=== PATIENT | male | born 1965 | race Caucasian/White ===

== ENCOUNTER 2018-11-26 09:46 | Observation (INO) | payer BC ==
[2018-11-26 09:55] VITALS: BMI 31.5
--- NOTE | 2018-11-26 11:43 | PDOC ---
Documentation entered by Avel Alcantar SCRIBE, acting as scribe for Amber Long MD. Amber Logn MD: This documentation has been prepared by the Ortiz loaiza Nirvannie, SCRIBE, under my direction and personally reviewed by me in its entirety. I confirm that the documentation accurately reflects all work, treatment, procedures, and medical decision making performed by me. History of Present Illness - General Chief Complaint: Chest Pain Stated Complaint: CHEST PAIN, COUGH SENT BY PMD Time Seen by Provider: 11/26/18 11:08 History Source: Patient Exam Limitations: No Limitations - History of Present Illness Initial Comments: 11/26/18 11:39 The patient is a 53 year old male, with no significant past medical history, who presents to the emergency department s/p episode of near syncope yesterday at 3pm and EKG changes. As per patient, yesterday he experienced an episode of lightheadedness and felt like he was going to pass out prompting him to go to his PCP Dr. Nguyễn today at which time he was found to have new EKG changes. He denies any recent fevers, chills, headache or dizziness. He denies any recent nausea, vomit, diarrhea or constipation. He denies any recent chest pain or shortness of breath. He denies any recent dysuria, frequency, urgency or hematuria. Allergies: NKDA Familial Hx: Maternal mitral valve replacement @ 76YO. Primary Care Physician: Dr. Nguyễn Past History - Past Medical History Allergies/Adverse Reactions: Allergies Allergy/AdvReac Type Severity Reaction Status Date / Time No Known Allergies Allergy Verified 11/26/18 09:55 COPD: No Hypercholesterolemia: Yes - Suicide/Smoking/Psychosocial Hx Smoking History: Current every day smoker Number of Cigarettes Smoked Daily: 20 Information on smoking cessation initiated: No Hx Alcohol Use: No Drug/Substance Use Hx: No Review of Systems - Review of Systems Able to Perform ROS?: Yes Comments:: 11/26/18 11:41 GENERAL/CONSTITUTIONAL: No fever or chills. No weakness. HEAD, EYES, EARS, NOSE AND THROAT: No change in vision. No ear pain or discharge. No sore throat. CARDIOVASCULAR: +Near syncope. +Lightheaded. No chest pain or shortness of breath. RESPIRATORY: No cough, wheezing, or hemoptysis. GASTROINTESTINAL: No nausea, vomiting, diarrhea or constipation. GENITOURINARY: No dysuria, frequency, or change in urination. MUSCULOSKELETAL: No joint or muscle swelling or pain. No neck or back pain. SKIN: No rash. NEUROLOGIC: No headache, vertigo, or change in strength/sensation. ENDOCRINE: No increased thirst. No abnormal weight change. HEMATOLOGIC/LYMPHATIC: No anemia, easy bleeding, or history of blood clots. ALLERGIC/IMMUNOLOGIC: No hives or skin allergy. All Other Systems: Reviewed and Negative *Physical Exam - Vital Signs Last Vital Signs Temp Pulse Resp BP Pulse Ox 98.3 F 66 18 146/91 99 11/26/18 09:53 11/26/18 09:53 11/26/18 09:53 11/26/18 09:53 11/26/18 09:53 - Physical Exam Comments: 11/26/18 11:10 GENERAL: Awake, alert, and fully oriented, in no acute distress. Obese HEAD: No signs of trauma EYES: PERRLA, EOMI, sclera anicteric, conjunctiva clear ENT: Auricles normal inspection, hearing grossly normal, nares patent, oropharynx clear without exudates. Moist mucosa NECK: Normal ROM, supple, no lymphadenopathy, JVD, or masses LUNGS: Breath sounds equal, clear to auscultation bilaterally. No wheezes, and no crackles HEART: Regular rate and rhythm, normal S1 and S2, no murmurs, rubs or gallops ABDOMEN: Soft, nontender, normoactive bowel sounds. No guarding, no rebound. No masses EXTREMITIES: Normal range of motion, no edema. No clubbing or cyanosis. No cords, erythema, or tenderness NEUROLOGICAL: Cranial nerves II through XII grossly intact. Normal speech, normal gait. Motor and sensation intact SKIN: Warm, Dry, normal turgor, no rashes or lesions noted Heart Score/ECG Review - History History: Moderately suspicious - Electrocardiogram EKG: Normal - Age Age: 45-65 - Risk Factors Risk Factors Heart Score: Yes Hx Obesity Based on the list above the patient has:: 1-2 risk factors - Troponin Troponin: </= normal limit - Score Heart Score - Total: 3 - ECG Impressions Comment:: EKG read 09:54- NSR 66 bpm, no acute ST/T changes EKG from outpatient clinic for comparison shows ST elevations, concave up, in inferior leads. No reciprocal changes. ED Treatment Course - LABORATORY CBC & Chemistry Diagram: 11/26/18 12:00 11/26/18 12:00 - RADIOLOGY Radiology Studies Ordered: Category Date Time Status CHEST X-RAY PORTABLE* [RAD] Stat Radiology 11/26/18 11:10 Ordered Medical Decision Making - Medical Decision Making 11/26/18 11:24 Pt with near syncopal event yesterday, found to have abnormal EKG today, sent for evaluation. EKG in ED is normal. Awaiting labs. Will plan for observation stay. 11/26/18 13:30 Case d/w Dr. Rae, will place on obs. *DC/Admit/Observation/Transfer Diagnosis at time of Disposition: Near syncope - Discharge Dispostion Condition at time of disposition: Stable Decision to Admit order: Yes - Referrals Referrals: ON STAFF,NOT [Primary Care Provider] - - Patient Instructions - Post Discharge Activity
[2018-11-26 12:21] LABS: BASO % 0.4 % (0-2.0); EOS % 1.6 % (0-4.5); HEMATOCRIT 42.4 % (35.4-49); HEMOGLOBIN 14.4 GM/dL (11.7-16.9); LYMPH % 27.1 % (8-40); MCH 31.4 pg (25.7-33.7); MEAN CELL VOLUME 92.2 fl (80-96); MEAN PLT VOLUME 8.9 fl (7.5-11.1); MONO % 7.3 % (3.8-10.2); NEUT % 63.6 % (42.8-82.8); PLATELET COUNT 195 K/MM3 (134-434); RDW 14.2 % (11.9-15.9); WHITE BLOOD COUNT 4.8 K/mm3 (4.0-10.0)
[2018-11-26 12:24] LABS: INR 1.08 (0.83-1.09); PROTHROMBIN TIME (PATIENT) 12.8 SEC (9.7-13.0)
[2018-11-26 12:48] LABS: ALBUMIN 3.8 g/dl (3.4-5.0); ALK PHOS 83 U/L (45-117); ANION GAP 4 MMOL/L (8-16); BILIRUBIN,TOTAL 0.6 mg/dL (0.2-1); BLOOD UREA NITROGEN 13.6 mg/dL (7-18); CALCIUM 8.5 mg/dL (8.5-10.1); CHLORIDE 105 mmol/L (98-107); CO2 30 mmol/L (21-32); GLUCOSE,RANDOM 91 mg/dL (74-106); POTASSIUM 4.7 mmol/L (3.5-5.1); SGOT/AST 15 U/L (15-37); SGPT/ALT 25 U/L (13-61); SODIUM 139 mmol/L (136-145); TOT PROT 7.1 g/dl (6.4-8.2)
--- NOTE | 2018-11-26 17:16 | HP ---
Admitting History and Physical - Primary Care Physician PCP: Tana Rae - Admission History of Present Illness: -53 year old male, with no significant past medical history, who presents to the emergency department s/p episode of near syncope yesterday at 3pm and EKG changes. As per patient, yesterday he experienced an episode of lightheadedness and felt like he was going to pass out prompting him to go to his PCP Dr. Nguyễn today at which time he was found to have new EKG changes. He denies any recent fevers, chills, headache or dizziness. He denies any recent nausea, vomit, diarrhea or constipation. He denies any recent chest pain or shortness of breath. He denies any recent dysuria, frequency, urgency or hematuria. - Smoking History Smoking history: Current every day smoker Aproximately how many cigarettes per day: 20 - Alcohol/Substance Use Hx Alcohol Use: No Home Medications - Allergies Allergies/Adverse Reactions: Allergies Allergy/AdvReac Type Severity Reaction Status Date / Time No Known Allergies Allergy Verified 11/26/18 09:55 - Home Medications Home Medications: Ambulatory Orders NK [No Known Home Medication] 11/26/18 Physical Examination Vital Signs: Vital Signs Temperature 98.3 F 11/26/18 09:53 Pulse Rate 60 11/26/18 14:31 Respiratory Rate 18 11/26/18 14:31 Blood Pressure 110/65 11/26/18 14:31 O2 Sat by Pulse Oximetry (%) 100 11/26/18 14:31 Constitutional: Yes: No Distress HENT: Yes: Atraumatic Neck: Yes: Supple Cardiovascular: Yes: Regular Rate and Rhythm Respiratory: Yes: CTA Bilaterally Gastrointestinal: Yes: Normal Bowel Sounds Extremities: Yes: WNL Edema: No Neurological: Yes: Alert, Oriented Labs: CBC, BMP 11/26/18 12:00 11/26/18 12:00 Imaging - Results X-ray: Report Reviewed Problem List - Problems (1) Near syncope Code(s): R55 - SYNCOPE AND COLLAPSE Assessment/Plan Laboratory Tests 11/26/18 11/26/18 11/26/18 12:00 12:00 12:00 WBC 4.8 RBC 4.60 Hgb 14.4 Hct 42.4 MCV 92.2 MCH 31.4 MCHC 34.0 RDW 14.2 Plt Count 195 MPV 8.9 Absolute Neuts (auto) 3.0 Neutrophils % 63.6 Lymphocytes % 27.1 Monocytes % 7.3 Eosinophils % 1.6 Basophils % 0.4 Nucleated RBC % 0 PT with INR 12.80 INR 1.08 Sodium 139 Potassium 4.7 Chloride 105 Carbon Dioxide 30 Anion Gap 4 L BUN 13.6 Creatinine 1.0 Est GFR (CKD-EPI)AfAm 98.46 Est GFR (CKD-EPI)NonAf 84.95 Random Glucose 91 Calcium 8.5 Total Bilirubin 0.6 AST 15 ALT 25 Alkaline Phosphatase 83 Troponin I < 0.02 Total Protein 7.1 Albumin 3.8 Active Medications Generic Name Dose Route Start Last Admin Trade Name Freq PRN Reason Stop Dose Admin Acetaminophen 650 mg 11/26/18 21:04 Tylenol - PO Q6H PRN FEVER
[2018-11-26] MEDS ORDERED: ACETAMINOPHEN 325 MG TABLET (FP) PO PRN (21:04)
--- NOTE | 2018-11-27 11:09 | ECHO ---
Version: 1 Name: SHERIF DYKES Exam: Adult Echocardiogram Study Date: 11/27/2018, 8:42 AM Age: 53 Years MMode/2D Measurements & Calculations IVSd: 1.06 cm LVIDs: 2.7 cm LVIDd: 3.8 cm LVPWd: 1.30 cm ACS: 1.89 cm LVOT diam: 2.03 cm Doppler Measurements & Calculations MV E max mandeep: 113.0 cm/sec Med E/e': 12.7 MV A max mandeep: 100.2 cm/sec Med Peak E' Mandeep: 8.9 cm/sec MV E/A: 1.13 Lat E/e': 19.0 Lat Peak E' Mandeep: 5.9 cm/sec Ao max P.6 mmHg GABRIEL(I,D): 2.9 cm Ao mean P.6 mmHg LV V1 mean: 63.2 cm/sec Ao V2 max: 106.7 cm/sec LV V1 mean P.74 mmHg Left Ventricle The left ventricular size, thickness and function are normal. Ejection Fraction = 65. Left Ventricul ar Filling pattern is normal for age. Right Ventricle The right ventricle is normal in size and function. Atria Normal left and right atrial size and function. Mitral Valve The mitral valve is normal. There is mild mitral regurgitation. Tricuspid Valve The tricuspid valve is normal. Aortic Valve The aortic valve is normal in structure and function. Pulmonic Valve The pulmonic valve is not well visualized. Great Vessels The aortic root is normal size. Normal aortic arch, descending and ascending aorta. Pericardium/Pleura There is no pericardial effusion. Summary Statements The left ventricular size, thickness and function are normal Left Ventricular Filling pattern is normal for age. The right ventricle is normal in size and function. Normal left and right atrial size and function. The mitral valve is normal. There is mild mitral regurgitation. The tricuspid valve is normal. The aortic valve is normal in structure and function. The pulmonic valve is not well visualized. The aortic root is normal size. Normal aortic arch, descending and ascending aorta There is no pericardial effusion. Yong Lerner 11/27/2018, 10:09 AM Ordering Physician: Tana Rae Performed By: Bee Desai
--- NOTE | 2018-11-27 11:16 | CON.CARD ---
Consult Consult Specialty:: Cardiology Referred by:: Dr. Rae Reason for Consultation:: Cardiac evaluation - History of Present Illness Chief Complaint: Near syncope History of Present Illness: Patient is a 53 year old male with no significant PMH who presented with near syncopal episode and was told of ECG changes. He experienced dizziness and felt like passing out. 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 Currently, he is asymptomatic. He denies chest pain, SOB or palpitations. He denies paroxysmal nocturnal dyspnea or orthopnea. He denies fever or chills. He denies nausea, vomiting, diarrhea or abdominal pain. He denies headache or lightheadedness. ECG during this hospitalization was unremarkable. - History Source History Provided By: Patient, Medical Record Limitations to Obtaining History: No Limitations - Past Surgical History Past Surgical History: Yes: None - Alcohol/Substance Use Hx Alcohol Use: No - Smoking History Smoking history: Current every day smoker Have you smoked in the past 12 months: Yes Aproximately how many cigarettes per day: 20 Home Medications - Allergies Allergies/Adverse Reactions: Allergies Allergy/AdvReac Type Severity Reaction Status Date / Time No Known Allergies Allergy Verified 11/26/18 09:55 - Home Medications Home Medications: Ambulatory Orders NK [No Known Home Medication] 11/26/18 Family Disease History - Family Disease History Family Disease History: Heart Disease: Mother (?CABG ?valve surgery) Review of Systems - Review of Systems Constitutional: denies: Chills, Fever Cardiovascular: denies: Chest Pain, Palpitations, Shortness of Breath Respiratory: denies: Cough, Orthopnea, PND, SOB, SOB on Exertion Gastrointestinal: denies: Abdominal Pain, Constipation, Diarrhea, Melena, Rectal Bleeding, Vomiting Genitourinary: denies: Dysuria, Hematuria Musculoskeletal: denies: Back Pain, Joint Pain Neurological: reports: Dizziness, Syncope. denies: Headache, Seizure Vital Signs: Vital Signs Temperature 97.9 F 11/27/18 06:00 Pulse Rate 72 11/27/18 06:00 Respiratory Rate 20 11/27/18 06:00 Blood Pressure 130/72 11/27/18 06:00 O2 Sat by Pulse Oximetry (%) 98 11/26/18 21:10 Eyes: Yes: PERRL HENT: Yes: Atraumatic Neck: Yes: Supple Respiratory: Yes: CTA Bilaterally Gastrointestinal: Yes: Normal Bowel Sounds, Soft. No: Tenderness Cardiovascular: Yes: Regular Rate and Rhythm JVD: No Carotid Bruit: No PMI: Non-Displaced Heart Sounds: Yes: S1, S2. No: Gallop Murmur: No: Systolic Murmur, Diastolic Murmur Edema: No - Other Data Labs, Other Data: CBC, BMP 11/26/18 12:00 11/26/18 12:00 INR, PTT INR 1.08 (0.83-1.09) 11/26/18 12:00 Troponin, BNP 11/26/18 11/26/18 12:00 19:00 Troponin I < 0.02 < 0.02 Normal sinus rhythm with normal ECG Echo: Report Reviewed (Normal LV systolic function, mild MR) Imaging - Results Chest X-ray: Report Reviewed (Unremarkable) Ultrasound: Report Reviewed (Carotid US: minimal thickening and plaque) EKG: Report Reviewed Problem List - Problems (1) Mitral valve regurgitation Code(s): I34.0 - NONRHEUMATIC MITRAL (VALVE) INSUFFICIENCY Qualifiers: Cardiac valve disease etiology: nonrheumatic Qualified Code(s): I34.0 - Nonrheumatic mitral (valve) insufficiency (2) Near syncope Code(s): R55 - SYNCOPE AND COLLAPSE Assessment/Plan 1. Near syncope and dizziness 2. Mild mitral regurgitation PLAN: 1. No need for further cardiac evaluation 2. No need for additional cardiac medications 3. Echocardiography was reviewed 4. Carotid Doppler was noted Discharge planning Serge Ware MD
--- NOTE | 2018-11-27 12:48 | EKG ---
Test Reason : Blood Pressure : / mmHG Vent. Rate : 066 BPM Atrial Rate : 066 BPM P-R Int : 180 ms QRS Dur : 092 ms QT Int : 404 ms P-R-T Axes : 052 036 053 degrees QTc Int : 423 ms NORMAL SINUS RHYTHM NORMAL ECG NO PREVIOUS ECGS AVAILABLE Confirmed by Lang Reynolds MD ([id number]) on 11/27/2018 12:48:34 PM Referred By: Confirmed By:Lang Reynolds MD
[2018-11-27 14:14] VITALS: BP 139/95; PULSE 66; TEMP 97.7
--- NOTE | 2018-11-27 15:09 | DS ---
Physical Examination Vital Signs: Vital Signs Temperature 97.7 F 11/27/18 14:00 Pulse Rate 66 11/27/18 14:00 Respiratory Rate 20 11/27/18 14:00 Blood Pressure 139/95 11/27/18 14:00 O2 Sat by Pulse Oximetry (%) 98 11/26/18 21:10 Constitutional: Yes: No Distress HENT: Yes: Atraumatic Neck: Yes: Supple Cardiovascular: Yes: Regular Rate and Rhythm Respiratory: Yes: CTA Bilaterally Gastrointestinal: Yes: Normal Bowel Sounds Extremities: Yes: WNL Edema: No Peripheral Pulses WNL: Yes Neurological: Yes: Alert, Oriented Labs: CBC, BMP 11/26/18 12:00 11/26/18 12:00 Discharge Summary Reason For Visit: PRE SYNCOPE Current Active Problems Near syncope (Acute) Condition: Stable - Instructions Referrals: Doug Garsia MD [Staff Physician] - Tana Rae MD [Staff Physician] - Disposition: HOME - Home Medications Comprehensive Discharge Medication List: Ambulatory Orders NK [No Known Home Medication] 11/26/18 dc home
== END 2018-11-27 17:43 | disposition home or self-care (01) ==
LOC: JER 09:46 → JERBED 13:31 → J4W 17:54
PROVIDERS: ADMIT Internal Medicine; ATTEND Internal Medicine
DX: R55 Syncope and collapse (principal); I34.0 Nonrheumatic mitral (valve) insufficiency; E78.00 Pure hypercholesterolemia, unspecified; F17.210 Nicotine dependence, cigarettes, uncomplicated; R94.31 Abnormal electrocardiogram [ECG] [EKG]
CPT/HCPCS: 36415; 71045-TC-FY; 80053; 82550; 84484; 85025; 85610; 93005; 93010; 93306-TC; 93880-TC; 99284-25; G0378